=== PATIENT | female | born 1960 | race Caucasian/White ===

== ENCOUNTER 2024-01-07 09:57 | Day surgery (SDC) | payer OTHER, SELFPAY ==
[2023-12-17 09:40] VITALS: BP 136/74; PULSE 104; RESP 18; TEMP 36.2; O2SAT 96; BMI 37.5
[2023-12-17 10:07] LABS: Bedside Glucose 80 mg/dL (74-106)
[2024-01-07] VITALS (7 sets, daily range): BP systolic 82–139; BP diastolic 57–87; PULSE 89–118; RESP 16; TEMP 36.2–36.9; O2SAT 93–97; BMI 39.6
[2024-01-07] MEDS: Lactated Ringers 1,000 ML 15 ML IV (10:44)
[2024-01-07] MEDS: Lidocaine 1% /Epi 1:100 (20ml) 20 ML Vial (11:07)
[2024-01-07] MEDS: Cefazolin 2 GM in 0.9% Normal Saline (100mL Bag) 100 ML IV (12:01)
[2024-01-07 12:25] LABS: Bedside Glucose 103 mg/dL (74-106)
--- NOTE | 2024-01-07 12:32 | RAD_ITS ---
PROCEDURE: Pain pump insertion. DATE OF EXAMINATION: January 07, 2024. INDICATION: Female, 63 years old. Chronic back pain. FLUOROSCOPY TIME (if supplied): (37 seconds) minutes/seconds. 37 mGy. 2 images were submitted. RAD/Spine 1 View Any Level IMPRESSION: Fluoroscopic services provided for pain pump insertion. Electronically Signed: Lester Rodriguez MD at 13:51 EDT ,
== END 2024-01-07 15:00 | disposition home or self-care (01) ==
LOC: AC 10:12 → SDC 10:20 → AC 10:21
PROVIDERS: Referring Provider Anesthesiology Pain Medicine; Visit Provider Anesthesiology Pain Medicine
PROC: (CPT 62350; principal; 2024-01-07 11:15)
DX: M51.26 Other intervertebral disc displacement, lumbar region (principal); J44.9 Chronic obstructive pulmonary disease, unspecified; E11.9 Type 2 diabetes mellitus without complications; S90.31XA Contusion of right foot, initial encounter; S70.02XA Contusion of left hip, initial encounter; F17.200 Nicotine dependence, unspecified, uncomplicated; F32.A Depression, unspecified; I10 Essential (primary) hypertension; K21.9 Gastro-esophageal reflux disease without esophagitis; R23.3 Spontaneous ecchymoses; Z86.73 Personal history of transient ischemic attack (TIA), and cerebral infarction without residual deficits; Z99.3 Dependence on wheelchair; Z87.19 Personal history of other diseases of the digestive system; Z90.710 Acquired absence of both cervix and uterus; F41.9 Anxiety disorder, unspecified; Z99.89 Dependence on other enabling machines and devices; R05.3 Chronic cough
CPT/HCPCS: 62350; 62362; 00630; 72020; 76000; 82962; J7120; J2274; J2405; J3490

== ENCOUNTER → 2024-12-04 | Outpatient (CLI) | payer OTHER, SELFPAY ==
--- NOTE | 2024-12-04 10:06 | MRI_ITS ---
PROCEDURE: MRI lumbar spine without IV contrast REASON FOR EXAM: Pain, radiculopathy TECHNIQUE: Multisequence multiplanar MR images of the lumbar spine were obtained without the administration of intravenous contrast. COMPARISON: None. FINDINGS: Vertebral body heights are maintained. Negative for fracture or marrow replacement. Advanced lower lumbar spine degenerative disc disease with degenerative endplate changes from L3 through S1. Lower lumbar levoscoliosis. Conus medullaris is intact and terminates at L1. Moderate paraspinal muscle atrophy. No paraspinal mass. Perineural cysts partially visualized along the inferior sacrum. L1-2: Minimal posterior disc bulge. Mild bilateral facet arthrosis. No significant spinal stenosis or foraminal narrowing. L2-3: Posterior disc bulge. Mild bilateral facet arthrosis and ligamentum flavum hypertrophy. Mild spinal stenosis. Mild bilateral foraminal narrowing, greater on the left. L3-4: Posterior disc bulge. Moderate bilateral facet arthrosis and ligamentum flavum hypertrophy. Laminectomy changes on the right. Moderate spinal stenosis. Severe right and moderate left foraminal narrowing. L4-5: Posterior disc bulge with superimposed right central disc protrusion and annular fissure. Moderate bilateral facet arthrosis and ligamentum flavum hypertrophy. Probable laminectomy changes on the left. Severe spinal stenosis with narrowing of the right lateral recess. Severe right and moderate left foraminal narrowing. L5-S1: Posterior disc bulge. Moderate bilateral facet arthrosis and ligamentum flavum hypertrophy. Moderate/severe spinal stenosis. Moderate bilateral foraminal narrowing. MRI/Spine Lumbar (Routine) IMPRESSION: 1. Acquired multilevel spinal stenosis, greatest at L4-L5 categorized as severe . 2. Acquired multilevel foraminal narrowing, greatest on the right at L4-L5 marichuy gorized as severe. See level by level comments above. Reading Location: [id number]
== END | disposition home or self-care (01) ==
LOC: MRI 09:59
PROVIDERS: Referring Provider Anesthesiology Pain Medicine; Visit Provider Anesthesiology Pain Medicine
DX: S90.122A Contusion of left lesser toe(s) without damage to nail, initial encounter (principal); S70.02XA Contusion of left hip, initial encounter; M51.26 Other intervertebral disc displacement, lumbar region
CPT/HCPCS: 72148

== ENCOUNTER → 2025-08-08 | Outpatient (CLI) | payer MEDICARE, MEDICAID, SELFPAY ==
--- NOTE | 2025-08-08 11:45 | RAD_ITS ---
PROCEDURE: ELBOW MIN 3 VIEWS 08/08/2025 REASON FOR EXAM: PAIN TECHNIQUE: Procedure Code: RADEL Modality: DX Procedure: ELBOW MIN 3 VIEWS Laterality: Right. COMPARISON: None. RAD/Elbow min 3 Views IMPRESSION: No right elbow joint effusion is seen. Minimal degenerative changes are seen of the right humeroulnar articulation, wi thout significant joint narrowing. Satisfactory alignment is seen. No fracture or other acute osseous change is evident. Reading Location: [id number]
--- NOTE | 2025-08-08 11:45 | RAD_ITS ---
PROCEDURE: CERV SPINE 4 OR 5 VIEWS 08/08/2025 REASON FOR EXAM: NECK PAIN TECHNIQUE: Procedure Code: RADSPC Modality: DX Procedure: CERV SPINE 4 OR 5 VIEWS FINDINGS: No evidence of acute fracture or dislocation. Moderate discogenic degenerative changes of the visualized spine. Vertebral body heights are maintained. Normal alignment. RAD/Cerv Spine 4 or 5 Views IMPRESSION: Moderate spondylosis Reading Location: [id number]
--- NOTE | 2025-08-08 11:45 | RAD_ITS ---
PROCEDURE: ELBOW MIN 3 VIEWS 08/08/2025 REASON FOR EXAM: PAIN TECHNIQUE: Procedure Code: RADEL Modality: DX Procedure: ELBOW MIN 3 VIEWS Laterality: Right. COMPARISON: None. RAD/Elbow min 3 Views IMPRESSION: No right elbow joint effusion is seen. Minimal degenerative changes are seen of the right humeroulnar articulation, wi thout significant joint narrowing. Satisfactory alignment is seen. No fracture or other acute osseous change is evident. Reading Location: [id number]
--- NOTE | 2025-08-08 11:45 | RAD_ITS ---
PROCEDURE: CERV SPINE 4 OR 5 VIEWS 08/08/2025 REASON FOR EXAM: NECK PAIN TECHNIQUE: Procedure Code: RADSPC Modality: DX Procedure: CERV SPINE 4 OR 5 VIEWS FINDINGS: No evidence of acute fracture or dislocation. Moderate discogenic degenerative changes of the visualized spine. Vertebral body heights are maintained. Normal alignment. RAD/Cerv Spine 4 or 5 Views IMPRESSION: Moderate spondylosis Reading Location: [id number]
== END | disposition home or self-care (01) ==
PROVIDERS: PCP Nurse Practitioner Family; Referring Provider Anesthesiology; Visit Provider Anesthesiology
DX: M54.2 Cervicalgia (principal); M79.601 Pain in right arm
CPT/HCPCS: 72050; 73080

== ENCOUNTER → 2025-10-02 | Outpatient (CLI) | payer MEDICARE, MEDICAID, SELFPAY ==
--- NOTE | 2025-10-02 07:37 | MRI_ITS ---
PROCEDURE: SPINE CERVICAL (ROUTINE) 10/02/2025 REASON FOR EXAM: Clinical history of cervical radiculopathy. TECHNIQUE: Procedure Code: MRISP Modality: MR Procedure: SPINE CERVICAL (ROUTINE) Multiplanar and multisequence images were obtained without IV contrast administration. COMPARISON: None available. FINDINGS: The visualized posterior fossa contents appear within normal limits. The normal cervical lordosis is maintained. The atlantooccipital and atlantoaxial joints appear normally aligned. The cervical vertebral bodies are normal in height. The cervical vertebral bodies are normal in alignment. The cervical bone marrow signal is within normal limits. Multilevel disc desiccation. Intervertebral disc space height loss most prominent at C5-C6. There is no evidence of cervical spinal cord signal abnormality. C2-C3: No significant spinal canal stenosis or neural foraminal narrowing. C3-C4: No significant spinal canal stenosis or neural foraminal narrowing. C4-C5: Central disc protrusion contributes to focal moderate spinal canal stenosis with indentation of the ventral cord. Bilateral facet arthrosis and uncovertebral spurring. Moderate left neural foraminal narrowing. Intact right neural foramen. C5-C6: Disc bulge with superimposed central disc protrusion and ligamentum flavum hypertrophy contributes to moderate spinal canal stenosis with flattening of the ventral cord. Bilateral facet arthrosis and uncovertebral spurring contribute to moderate bilateral neural foraminal narrowing. C6-C7: Posterior disc osteophyte complex, bilateral facet arthrosis, ligamentum flavum hypertrophy, and uncovertebral spurring. Moderate spinal canal stenosis with flattening of the ventral cord. [id number] right and moderate left neural foraminal narrowing. C7-T1: No significant spinal canal stenosis or neural foraminal narrowing. MRI/Spine Cervical (Routine) IMPRESSION: Cervical spondylosis most prominent at C6-C7 where there is moderate spinal can al stenosis and [id number] right neural foraminal stenosis. Multiple levels of moderate neural foraminal stenosis. Ad ditional details as discussed above. Reading Location: [id number]
== END | disposition home or self-care (01) ==
PROVIDERS: PCP Nurse Practitioner Family; Referring Provider Anesthesiology; Visit Provider Anesthesiology
DX: M54.12 Radiculopathy, cervical region (principal)
CPT/HCPCS: 72141